=== PATIENT | female | born 1980 | race Caucasian/White ===

== ENCOUNTER 2020-01-21 12:23 | Emergency (ER) | payer SELFPAY ==
[2020-01-21 12:46] VITALS: BP 129/82; PULSE 80; RESP 16; TEMP 36.8; O2SAT 99; BMI 29.1
--- NOTE | 2020-01-21 13:03 | W.ED.COVID ---
HPI - COVID General: Chief Complaint: COVID symptoms Stated Complaint: covid symptoms Time Seen by Provider: 01/21/20 13:00 Triage information: Has fever, cough or shortness of breath. No known COVID + exposure last 14 days History of Present Illness: HPI Narrative: Complained about shortness of breath has had a fever no fever now actually she said her symptoms improve and she had a cousin just yesterday and she is got anxious about having possible Covid does not want to be tested because she believes she does have it. MD complaint: reported COVID exposure and has COVID symptoms Prior covid testing: no COVID 19 common symptoms: positive fever(s) (Fever is gone now), dyspnea and body aches; negative headache(s), throat pain, nasal congestion, nausea or vomiting COVID 19 other sytmptoms: negative chest pain Onset (ago): day(s) Severity: mild Treatment prior to arrival: none COVID Results: No Data to Display Review of Systems Const: Reports: fever(s) (Fever is gone now) and body aches Eyes: Denies: change in vision or blurry vision ENMT: Denies: throat pain or nasal congestion Card: Denies: chest pain or dyspnea on exertion Resp: Reports: dyspnea GI: Denies: abdominal pain, nausea or vomiting Musc: Reports: other (Muscle aches); Denies: extremity pain Skin/Breast: Denies: rash Neuro: Denies: headache(s) Psych: Denies: anxiety or depression Jose Cruz/Lymph: Denies: easy bruising PFS ED PFSH: Medical History (Updated 01/21/20 @ 13:01 by ETTA Navarro) Essential hypertension Surgical History (Updated 08/23/19 @ 10:10 by GIANCARLO Wilder) No pertinent past surgical history Family History Other Hypertension Stroke Social History Smoking and tobacco status: never smoked Second hand smoke exposure: No Smoking risk assessment/counseling performed?: No Alcohol intake: never Desire information about alcohol rehabilitation?: No Counseling given: No Desire information about substance/drug rehabilitation?: No Counseling given: No Adopted: No Caregiver/support person: No Lives independently: Yes Household members: spouse and children Marital status: Number of children: 2 service: No Current occupational status: employed Current occupation: [employer] History of recent travel: No Current gender identity: Female Female Reproductive History: Date of last menstrual period: 01/02/20 Physical Exam Const: COMMON NORMALS: no acute distress, average body habitus and patient oriented x3 HENMT: COMMON NORMALS: normocephalic HEAD & SCALP: normal to inspection and normocephalic FACE & SINUS: normal facial exam Eye: COMMON NORMALS: conjunctivae normal GENERAL EYE: appearance normal, both eyes and all related structures CONJUNCTIVA: Yes conjunctivae normal Neck/C-Spine: COMMON NORMALS: no JVD Chest: COMMONS NORMALS: normal inspection of the chest Resp: COMMON NORMALS: normal respiratory effort and clear to auscultation bilaterally AUSCULTATION: clear to auscultation bilaterally Cardio: COMMON NORMALS: no JVD, regular rate and regular rhythm RATE: regular rate RHYTHM: regular rhythm Extremity: COMMON NORMALS: normal to inspection and full ROM Neuro: COMMON NORMALS: patient oriented x3 Course Vital Signs: Vital signs: Vital Signs Temperature 98.3 F 01/21/20 12:46 Pulse Rate 80 01/21/20 12:46 Respiratory Rate 16 01/21/20 12:46 Blood Pressure 129/82 01/21/20 12:46 Pulse Oximetry 99 01/21/20 12:46 MDM - COVID Lab Data COVID Results: No Data to Display Discharge Plan Discharge Patient Disposition: Home Clinical Impression: Viral infection Condition: Stable Prescriptions: No Action Contrave 8-90 mg tablet extended release 1 tab PO Q12H Qty: 60 RF: 0 metoprolol succinate 25 mg tablet extended release 24 hr 25 mg PO DAILY Qty: 30 RF: 5 Discharge Orders: Discharge Order (Routine); Ordered 01/21/20 Ordered By: Jett Duque Referrals: Sharon Miller, [facility] [employer]PERATOR-[facility] [Primary Care Provider] - Discharge Diet: Usual diet Discharge Activity: Increase activity as tolerated Patient Instructions: Viral Syndrome (ED) Activity Restrictions/Additional Instructions: Full instruction Covid instruction sheet by self and oxygen saturation monitor and check your oxygen levels if they start dropping significantly in below 90% please return to the ER Coding Level of Care Code ED Inker And Opaquer for Chg Fwd
[2020-01-21 13:43] VITALS: PULSE 74; RESP 17; O2SAT 97
== END 2020-01-21 13:43 | disposition home or self-care (01) ==
PROVIDERS: Emergency Provider Nurse Practitioner Family; PCP Nurse Practitioner
DX: Z20.828 Contact with and (suspected) exposure to other viral communicable diseases (principal); B34.9 Viral infection, unspecified; I10 Essential (primary) hypertension
CPT/HCPCS: 12345; 99281

== ENCOUNTER → 2020-12-06 15:44 | Outpatient (BNVA) | payer SELFPAY | PROVIDERS: PCP Nurse Practitioner; Visit Provider Nurse Practitioner | DX: R52 Pain, unspecified (principal); N39.0 Urinary tract infection, site not specified | CPT/HCPCS: 81000 ==

== ENCOUNTER 2023-08-13 13:28 | Outpatient (CLI) | payer OTHER, SELFPAY ==
--- NOTE | 2023-08-13 13:30 | MM_ITS ---
WS: [id number] Bilateral screening 3D tomosynthesis digital mammogram, 08/13/2023 Clinical Data: SCREENING Comparison: None. Findings: The breast parenchymal pattern shows fibroglandular tissue. There is increased tissue in the superior aspect of the right breast with a proximal dimension of 2.5 cm. The borders are irregular. There are no associated calcifications. The left breast is normal. There are no secondary signs of carcinoma. MM/[place] [id number] Impression: 1. Increased tissue density in the upper aspect of right breast and recommend r epeat MLO, CC views along with ML view of the right breast. Recommend right devante ast ultrasound 2. Negative left breast BIRADS: 0-Incomplete: Need additional imaging evaluation FOLLOW UP: See Report The CAD aircraft shipping checker was used.
== END 2023-08-13 13:29 | disposition home or self-care (01) ==
LOC: MOBLMAM 13:39
PROVIDERS: PCP Nurse Practitioner; Visit Provider Nurse Practitioner
DX: Z12.31 Encounter for screening mammogram for malignant neoplasm of breast (principal); R92.30 Dense breasts, unspecified
CPT/HCPCS: 77063; 77067

== ENCOUNTER 2023-08-21 09:02 | Outpatient (CLI) | payer OTHER, SELFPAY ==
--- NOTE | 2023-08-21 09:09 | MM_ITS ---
WS: [id number] Right breast diagnostic 3D tomosynthesis digital mammogram, 08/21/2023 Clinical Data: ABNORMAL FINDINGS Comparison: 08/13/2023 Findings: There is asymmetric tissue in the central portion of the right breast. No clustered calcifications ar e associated with this increased tissue. There are no masses. MM/[place] [id number] Impression: 1. Asymmetric central right breast tissue. 2. Recommend right breast ultrasound. BIRADS: 2-Benign FOLLOW UP: See Report The CAD coat checker was used.
--- NOTE | 2023-08-21 09:09 | US_ITS ---
WS: [id number] Right breast ultrasound, 08/21/2023 Clinical Data: ABNORMAL MAMMO Comparison: Mammograms, 08/21/2023, 08/13/2023. Findings: In the upper aspect of the right breast from the 10:00 to the 2 o'clock position there is only normal breast tissue. No abnormal masses are seen. There are no cysts. US/US breast RT limited* [id number] Impression: 1. Asymmetric breast tissue in central portion of superior right breast. 2. Return to annual screening mammograms. BIRADS: 2-Benign FOLLOW UP: 1 Year Follow-up
== END 2023-08-21 09:03 | disposition home or self-care (01) ==
LOC: RAD 09:03
PROVIDERS: PCP Nurse Practitioner; Visit Provider Advanced Practice Midwife
DX: R92.8 Other abnormal and inconclusive findings on diagnostic imaging of breast (principal); N64.89 Other specified disorders of breast
CPT/HCPCS: 76642; 77061; G0279

== ENCOUNTER → 2023-09-21 16:05 | Outpatient (BNVA) | payer SELFPAY | PROVIDERS: PCP Nurse Practitioner; Visit Provider Emergency Medicine | DX: R39.9 Unspecified symptoms and signs involving the genitourinary system (principal) | CPT/HCPCS: 81000 ==

== ENCOUNTER → 2024-09-19 11:19 | Outpatient (BNVA) | payer SELFPAY | PROVIDERS: PCP Clinical Nurse Specialist Adult Health | DX: R39.9 Unspecified symptoms and signs involving the genitourinary system (principal) | CPT/HCPCS: 81000; 87086 ==

== ENCOUNTER 2024-10-13 11:40 | Outpatient (CLI) | payer SELFPAY ==
--- NOTE | 2024-10-13 11:40 | MM_ITS ---
WS: [id number] BILATERAL 3D TOMOSYNTHESIS DIGITAL SCREENING MAMMOGRAPHY WITH CAD CLINICAL INFORMATION: SCREENING HISTORY: Screening mammogram. No current complaints. COMPARISON: 2023 TECHNIQUE: Bilateral CC and MLO views. FINDINGS: The breasts are composed of heterogeneous fibroglandular density tissue, which can limit the detection of small underlying mass lesions. No suspicious mass, asymmetry, calcifications, or architectural distortion. No evidence of malignancy. Stable dense asymmetric tissue in the central RIGHT breast prev iously evaluated. MM/MM [facility] tomosynthesis [id number] IMPRESSION: DENSITY: The breasts are heterogeneously dense, which may obscure small masses. BI-RADS: 2 - Benign FOLLOW UP: 1 Year Follow-up Recommend return to annual screening mammography.
== END 2024-10-13 11:41 | disposition home or self-care (01) ==
LOC: MOBLMAM 11:44
PROVIDERS: PCP Advanced Practice Midwife; Visit Provider Advanced Practice Midwife
DX: Z12.31 Encounter for screening mammogram for malignant neoplasm of breast (principal); R92.323 Mammographic fibroglandular density, bilateral breasts; R92.8 Other abnormal and inconclusive findings on diagnostic imaging of breast
CPT/HCPCS: 77063; 77067